=== PATIENT | female | born 1995 | race Hispanic/Latino ===

== ENCOUNTER 2017-05-16 15:23 | Emergency (ER) | payer OTHER, MEDICAID ==
[~2017-05-16] VITALS: Ht 165.1 cm; Wt 86.2 kg
[2017-05-16 15:30] VITALS: BP 87/61
[2017-05-16] MEDS ORDERED: levETIRAcetam 500 MG in D5W 110 ML IV ONE (15:30)
[2017-05-16] MEDS ORDERED: LORazepam Inj 2mg/ml 1ml IM ONE (17:15)
[2017-05-16 17:30] VITALS: BP 118/57
[2017-05-16] MEDS ORDERED: levETIRAcetam 500mg vial IV ONE (17:31)
[2017-05-16 18:10] LABS: ALANINE AMINOTRANSFERASE 17 U/L (12-78); ALBUMIN/GLOBULIN RATIO 1.1 (1.0-2.7); ALCOHOL 144 mg/dL; ANION GAP 15 mmol/L (5-15); ASPARTATE AMINO TRANSFERASE 24 U/L (15-37); CALCIUM 9.2 MG/DL (8.5-10.1); CARBON DIOXIDE 20 MMOL/L (21-32); CHLORIDE 109 MMOL/L (98-107); CREATININE 0.5 MG/DL (0.55-1.30); GLOMERULAR FILTRATION RATE > 60 mL/min (>60); POTASSIUM 3.8 MMOL/L (3.5-5.1); SODIUM 144 MMOL/L (136-145); TOTAL PROTEIN 7.2 G/DL (6.4-8.2)
[2017-05-16] MEDS ORDERED: LORazepam Inj 2mg/ml 1ml IV ONE (18:15)
[2017-05-16 18:17] LABS: MEAN CORPUSCULAR HEMOGLOBIN 26.1 PG (27.0-31.0); MEAN CORPUSCULAR HGB CONC 29.7 G/DL (32.0-36.0); MEAN CORPUSCULAR VOLUME 88 FL (80-99); MEAN PLATELET VOLUME 8.1 FL (6.5-10.1); PLATELET COUNT 70 K/UL (150-450); RED BLOOD COUNT 4.46 M/UL (4.20-5.40); RED CELL DISTRIBUTION WIDTH 20.5 % (11.6-14.8); WHITE BLOOD COUNT 6.5 K/UL (4.8-10.8)
[2017-05-16 19:00] VITALS: BP 106/66
[2017-05-16] MEDS ORDERED: PHENOBARBITAL60 MG ORAL (19:20)
[2017-05-16] MEDS ORDERED: PHENYTOIN SODI100 MG ORAL (19:25)
[2017-05-16] MEDS ORDERED: NORCO 5-325 TA1 EAC1 ORAL (19:25)
[2017-05-16] MEDS ORDERED: LEVETIRACETAM750 MG ORAL (19:25)
[2017-05-16 20:59] LABS: APPEARANCE,URINE CLEAR; KETONES,URINE NEGATIVE (NEGATIVE); LEUKOCYTE ESTERASE ,URINE NEGATIVE (NEGATIVE); NITRITE,URINE NEGATIVE (NEGATIVE); PH,URINE 7 (4.5-8.0); PROTEIN,URINE NEGATIVE (NEGATIVE); UROBILINOGEN,URINE NORMAL MG/DL (0.0-1.0)
[2017-05-16 21:17] VITALS: BP 129/74
[2017-05-16 21:18] LABS: ANISOCYTOSIS 1+; BASOPHILS % (MANUAL) 1 % (0-2); EOSINOPHILS % (MANUAL) 1 % (0-3); HYPOCHROMASIA 1+; LYMPHOCYTES % (MANUAL) 40 % (20-45); NEUTROPHILS % (MANUAL) 54 % (45-75); PLATELET MORPHOLOGY NORMAL; TOTAL CELLS COUNTED 100
[2017-05-16 21:19] LABS: BAND NEUTROPHILS % (MANUAL) 0 % (0-8); PLATELET ESTIMATE DECREASED
--- NOTE | 2017-05-16 21:56 | Emergency Room Report ---
History of Present Illness General Chief Complaint: Seizure Source: Patient, EMS Present Illness HPI This patient has a history of seizure disorder. She has been seen at another hospital recently for abdominal pain and underwent a full workup which was unremarkable. She presents today for her witnessed tonic clonic seizure. The patient states she is taking her seizure medications. She denies chest pain or shortness of breath. She has no other complaints. Allergies: Coded Allergies: UNABLE TO ASSESS (Unverified , 05/16/17) Patient History Past Medical History: see triage record, seizures Social History: Reports: smoking, Denies: alcohol use, drug use Reviewed Nursing Documentation: PMH: Agreed, PSxH: Agreed Nursing Documentation-PMH Hx Seizures: Yes Review of Systems All Other Systems: negative except mentioned in HPI Physical Exam Vital Signs Date Time Temp Pulse Resp B/P (MAP) Pulse Ox O2 Delivery O2 Flow Rate FiO2 05/16/17 15:20 98.1 88 16 130/80 98 Room Air 05/16/17 15:30 15.0 Sp02 EP Interpretation: reviewed, normal General Appearance: no apparent distress, alert, GCS 15, non-toxic Head: normocephalic, atraumatic Eyes: bilateral eye normal inspection, bilateral eye PERRL ENT: hearing grossly normal, normal pharynx, no angioedema, normal voice Neck: full range of motion, supple/symm/no masses Respiratory: chest non-tender, lungs clear, normal breath sounds, speaking full sentences Cardiovascular #1: regular rate, rhythm, no edema Gastrointestinal: normal bowel sounds, soft, non-distended, no guarding, no rebound, tenderness - TTP diffusely in the abdomen. Rectal: deferred Musculoskeletal: back normal, normal range of motion, non-tender Neurologic: alert, oriented x3, responsive, motor strength/tone normal, sensory intact, speech normal Psychiatric: judgement/insight normal, memory normal, mood/affect normal, no suicidal/homicidal ideation Skin: normal color, no rash, warm/dry, well hydrated Medical Decision Making Diagnostic Impression: Primary Impression: Uncontrolled seizures Additional Impression: Noncompliance with medication regimen ER Course This patient has a history of seizure disorder. The patient to Dilantin level is low. I suspect medication noncompliance. 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 However, the patient did have multiple tonic- clonic and recurrent seizures here in the emergency department. She was given large doses of benzodiazepines and loading dose of Keppra. After the benzodiazepines she was very sleepy and but was arousable. She maintained her airway. Given the large doses of benzodiazepines that she required any recurrent seizures here in the emergency department [place] [facility] [place] [facility]. Laboratory workup was noncontributory to include CBC, CMP, urinalysis and hCG. CT of the head is also negative. CT of the abdomen and pelvis showed no acute findings. The patient was stable for transfer but sleepy secondary to postictal state and benzodiazepines. Further care per [employer]. Laboratory Tests Test 05/16/17 17:30 05/16/17 17:36 05/16/17 20:34 Sodium Level 144 MMOL/L (136-145) Potassium Level 3.8 MMOL/L (3.5-5.1) Chloride Level 109 MMOL/L (98-107) H Carbon Dioxide Level 20 MMOL/L (21-32) L Anion Gap 15 mmol/L (5-15) Blood Urea Nitrogen 6 mg/dL (7-18) L Creatinine 0.5 MG/DL (0.55-1.30) L Estimate Glomerular Filtration Rate > 60 mL/min (>60) Glucose Level 87 MG/DL (74-106) Calcium Level 9.2 MG/DL (8.5-10.1) Total Bilirubin 0.2 MG/DL (0.2-1.0) Aspartate Amino Transferase (AST) 24 U/L (15-37) Alanine Aminotransferase (ALT) 17 U/L (12-78) Alkaline Phosphatase 93 U/L (46-116) Total Protein 7.2 G/DL (6.4-8.2) Albumin 3.7 G/DL (3.4-5.0) Globulin 3.5 g/dL Albumin/Globulin Ratio 1.1 (1.0-2.7) Human Chorionic Gonadotropin, Qual Negative Phenytoin (Dilantin) Level 4.1 ug/mL (10-20) L Phenobarbital Level 18.1 ug/mL (15-40) Serum Alcohol 144 mg/dL White Blood Count 6.5 K/UL (4.8-10.8) Red Blood Count 4.46 M/UL (4.20-5.40) Hemoglobin 11.6 G/DL (12.0-16.0) L Hematocrit 39.2 % (37.0-47.0) Mean Corpuscular Volume 88 FL (80-99) Mean Corpuscular Hemoglobin 26.1 PG (27.0-31.0) L Mean Corpuscular Hemoglobin Concent 29.7 G/DL (32.0-36.0) L Red Cell Distribution Width 20.5 % (11.6-14.8) H Platelet Count 70 K/UL (150-450) L Mean Platelet Volume 8.1 FL (6.5-10.1) Neutrophils (%) (Auto) % (45.0-75.0) Lymphocytes (%) (Auto) % (20.0-45.0) Monocytes (%) (Auto) % (1.0-10.0) Eosinophils (%) (Auto) % (0.0-3.0) Basophils (%) (Auto) % (0.0-2.0) Differential Total Cells Counted 100 Neutrophils % (Manual) 54 % (45-75) Lymphocytes % (Manual) 40 % (20-45) Monocytes % (Manual) 4 % (1-10) Eosinophils % (Manual) 1 % (0-3) Basophils % (Manual) 1 % (0-2) Band Neutrophils 0 % (0-8) Platelet Estimate Decreased L Platelet Morphology Normal Hypochromasia 1+ Anisocytosis 1+ Urine Color Pale yellow Urine Appearance Clear Urine pH 7 (4.5-8.0) Urine Specific [place] 1.010 (1.005-1.035) Urine Protein Negative (NEGATIVE) Urine Glucose (UA) Negative (NEGATIVE) Urine Ketones Negative (NEGATIVE) Urine Occult Blood Negative (NEGATIVE) Urine Nitrite Negative (NEGATIVE) Urine Bilirubin Negative (NEGATIVE) Urine Urobilinogen Normal MG/DL (0.0-1.0) Urine Leukocyte Esterase Negative (NEGATIVE) Urine HCG, Qualitative Negative Urine Opiates Screen Negative (NEGATIVE) Urine Barbiturates Screen Positive (NEGATIVE) H Phencyclidine (PCP) Screen Negative (NEGATIVE) Urine Amphetamines Screen Negative (NEGATIVE) Urine Benzodiazepines Screen Positive (NEGATIVE) H Urine Cocaine Screen Negative (NEGATIVE) Urine Marijuana (THC) Screen Positive (NEGATIVE) H EKG Diagnostic Results Rate: normal Rhythm: NSR ST Segments: no acute changes Rhythm Strip Diag. Results EP Interpretation: yes Rate: 90's Rhythm: NSR, no PVC's, no ectopy CT/MRI/US Diagnostic Results CT/MRI/US Diagnostic Results : Imaging Test Ordered: CT head, abd/pelvis Impression CT head: No acute intracranial findings. CT abdomen and pelvis: History of appendectomy. No rotation of the bilateral kidneys. See official report. No acute findings. Last Vital Signs Date Time Temp Pulse Resp B/P (MAP) Pulse Ox O2 Delivery O2 Flow Rate FiO2 05/16/17 21:17 97.5 85 24 129/74 96 Room Air 05/16/17 19:00 15.0 Status: improved Disposition: XFER SHT-TRM HOSP Condition: Stable Referrals: [facility] (PCP) NORIS SANDERS D.O. May 16, 2017 21:56
[2017-05-16 22:50] VITALS: BP 113/62
--- NOTE | 2017-05-17 10:17 | Diagnostic Imaging Report ---
Indication: Abdominal pain Technique: Continuous helical transaxial imaging of the abdomen and pelvis was obtained from the lung bases to the pubic symphysis during intravenous contrast administration. Coronal 2-D reformats were also obtained. Study obtained in a Siemens sensation [address] Total Dose length Product (DLP): [address] Dose Index Volume (CTDIvol): 2.15, 15.7 mGy Comparison: None Findings: There is basilar atelectasis demonstrated. At the left lung base there is hazy groundglass opacification as well. Pneumonia not excluded. Please correlate clinically. Apparent appendectomy noted with surgical clips in the area of the appendix. Please confirm with the surgical history. There is a small amount of free fluid in the pelvis which may likely be physiologic. Tiny hypodensity in lateral segment of the left lobe liver too small to characterize. The spleen, pancreas and gallbladder are unremarkable. 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 There is no subluxation. Impression: No acute findings. Basilar atelectasis. Pneumonia not entirely excluded especially at the left lung base. Please correlate clinically. Tiny liver hypodensity probably cystic although too small to characterize adequately. A left unilateral L5 spondylolysis. Status post appendectomy. Please confirm clinically. The CT scanner at [facility] is accredited by the [employer] and the scans are performed using dose optimization techniques as appropriate to a performed exam including Automatic Exposure control.
--- NOTE | 2017-05-17 11:11 | Diagnostic Imaging Report ---
Indication: Seizure Technique: Contiguous 5 mm thick transaxial imaging of the head obtained in a Siemens Sensation [address] scanner. Soft tissue and bone windows generated. Total Dose length Product (DLP): [address] Dose Index Volume (CTDIvol): 70.38, 0.15 mGy Comparison: none Findings: The size and configuration of the cortical sulci, basal cisterns, and ventricles are within normal limits for age. There is no mass effect, midline shift, or edema identified. There is no evidence of acute hemorrhage or abnormal intra-axial or extra-axial fluid collections. The bones and soft tissues are unremarkable. Impression: No mass effect, edema or acute bleed. The CT scanner at [facility] is accredited by the [employer] and the scans are performed using dose optimization techniques as appropriate to a performed exam including Automatic Exposure control.
--- NOTE | 2017-05-18 15:52 | Cardiology Report ---
APPROVED REPORT EKG Measurement Heart [id number] Normal sinus rhythm Normal ECG
== END 2017-05-16 22:50 | disposition short-term general hospital (02) ==
LOC: EDBD 15:23 → EMR 17:32
DX: G40.409 Other generalized epilepsy and epileptic syndromes, not intractable, without status epilepticus (principal); Z91.14 Patient's other noncompliance with medication regimen; R10.9 Unspecified abdominal pain; M43.06 Spondylolysis, lumbar region
CPT/HCPCS: 36415; 70450; 74177; 80053; 80184; 80185; 80307; 81003; 81025; 82962; 84703; 85007; 85025; 93005; 96361; 96365; 96366; 96372; 96375; 99285; G0480; J1953; Q9967; 80299; 80329